=== PATIENT | female | born 2000 | race Two or more races ===

== ENCOUNTER 2018-09-01 20:55 | Emergency (ER) | payer MEDICAID ==
[~2018-09-01] VITALS: Ht 157.5 cm; Wt 45.4 kg
[2018-09-01] MEDS ORDERED: IBUPROFEN 600 MG TABLET PO ONE (22:30)
[2018-09-01] MEDS ORDERED: DEXAMETHASONE 4 MG TABLET PO ONE (22:30)
[2018-09-01] MEDS ORDERED: DEXAMETHASONE 1 MG TABLET ONE (22:37)
[2018-09-01] MEDS ORDERED: DEXAMETHASONE 4 MG TABLET ONE (22:37)
[2018-09-01] MEDS ORDERED: IBUPROFEN 600 MG TABLET ONE (22:37)
--- NOTE | 2018-09-01 23:00 | NUR ---
Patient discharged to home in stable conditon. Written and verbal after care instructions given. Patient verbalizes understanding of instructions. PATIENT LEFT WITH STABLE GAIT.
[2018-09-02 00:31] VITALS: BP 116/82
== END 2018-09-02 00:32 | disposition home or self-care (01) ==
LOC: ER 20:55
DX: J02.9 Acute pharyngitis, unspecified (principal)
CPT/HCPCS: 99283; J8540 ×2; A4663

== ENCOUNTER 2018-10-11 10:52 | Emergency (ER) | payer MEDICAID ==
[~2018-10-11] VITALS: Ht 157.5 cm; Wt 46.3 kg
--- NOTE | 2018-10-11 11:10 | NUR ---
DR JOHNSON AT BEDSIDE FOR EVAL.
--- NOTE | 2018-10-11 11:16 | NUR ---
Patient discharged to home in stable conditon. Written and verbal after care instructions given. Patient verbalizes understanding of instructions.pt walks in steady gait. pt able to swallow saliva.
== END 2018-10-11 11:18 | disposition home or self-care (01) ==
LOC: ER 10:52
DX: J02.0 Streptococcal pharyngitis (principal)
CPT/HCPCS: 36415; 86403; 87070; A4663

== ENCOUNTER 2018-11-01 20:49 | Emergency (ER) | payer MEDICAID ==
[~2018-11-01] VITALS: Ht 157.5 cm; Wt 45.4 kg
--- NOTE | 2018-11-01 22:51 | NUR ---
Pt ambulates to ER with mother with c/o sore throat radiating to left ear x 3 days, states coughing clear phlegm. Respirations even + unlabored. No acute distress noetd.
[2018-11-01 23:37] LABS: *MONOTEST NEGATIVE (NEGATIVE)
--- NOTE | 2018-11-02 00:04 | NUR ---
Patient discharged to home in stable conditon. Written and verbal after care instructions given. Patient verbalizes understanding of instructions.
[2018-11-02 00:07] VITALS: BP 122/86
== END 2018-11-02 00:10 | disposition home or self-care (01) ==
LOC: ER 20:49
DX: J02.9 Acute pharyngitis, unspecified (principal)
CPT/HCPCS: 36415; 86308; A4663

== ENCOUNTER 2022-12-03 18:31 | Emergency (ER) | payer BC, MEDICAID ==
[~2022-12-03] VITALS: Ht 157.5 cm; Wt 58.5 kg
--- NOTE | 2022-12-03 20:00 | NUR ---
Dr. Phillips in room examining patient.
[2022-12-03] MEDS ORDERED: HYDR473S13 PO (20:14)
[2022-12-03] MEDS ORDERED: OXYM15MI4 NS (20:14)
[2022-12-03] MEDS ORDERED: PSEU-182 PO (20:14)
[2022-12-03] MEDS ORDERED: FLUT16SP16 BNOSTRILS (20:14)
--- NOTE | 2022-12-03 20:24 | NUR ---
Patient discharged to home in stable condition. Written and verbal after care instructions given. Patient verbalizes understanding of instructions. Stressed follow up or return to ER for worsening s/s. Patient walked out with steady gait.
[2022-12-03 20:25] VITALS: BP 118/72
== END 2022-12-03 20:28 | disposition home or self-care (01) ==
LOC: ER 18:34
DX: J40 Bronchitis, not specified as acute or chronic (principal); Z79.899 Other long term (current) drug therapy
CPT/HCPCS: A4663

== ENCOUNTER 2024-08-23 15:59 | Emergency (ER) | payer BC ==
[~2024-08-23] VITALS: Ht 157.5 cm; Wt 56.7 kg
[~2024-08-23 15:59] MED LIST: FLUT16SP16 BNOSTRILS; HYDR473S13 PO; OXYM15MI4 NS; PSEU-182 PO
[2024-08-23 16:41] LABS: BASOPHILS % (AUTO) 0.5 % (0.0-2.0); HEMATOCRIT 41.3 % (31.2-41.9); HEMOGLOBIN 14.1 g/dL (10.9-14.3); LYMPHOCYTES # (AUTO) 0.9 K/uL (0.8-4.8); LYMPHOCYTES % (AUTO) 30.5 % (20.5-51.5); MEAN CORPUSCULAR HEMOGLOBIN 29.9 uug (24.7-32.8); MEAN CORPUSCULAR HGB CONC 34 g/dL (32.3-35.6); MEAN CORPUSCULAR VOLUME 87.6 fL (75.5-95.3); MONOCYTES # (AUTO) 0.6 K/uL (0.1-1.30); MONOCYTES % (AUTO) 19.7 % (0.0-11.0); NEUTROPHILS # (AUTO) 1.4 K/uL (1.8-8.9); NEUTROPHILS % (AUTO) 49.3 % (38.5-71.5); PLATELET COUNT (AUTO) 214 K/uL (179-408); RED BLOOD CELL COUNT(AUTO) 4.71 MIL/uL (3.63-4.92); RED CELL DISTRIBUTION WIDTH 13.1 % (12.3-17.7); WHITE BLOOD COUNT (AUTO) 2.9 K/uL (3.8-11.8)
[2024-08-23 16:46] LABS: LYMPHOCYTES % (MANUAL) 32 % (20-40); NEUTROPHILS % (MANUAL) 50 % (42-75)
[2024-08-23 16:47] LABS: BASOPHILS % (MANUAL) 0 % (0-2)
[2024-08-23 16:48] LABS: EOSINOPHILS % (MANUAL) 4 % (0-8); MONOCYTES % (MANUAL) 14 % (2-10)
[2024-08-23] MEDS ORDERED: IBUPROFEN 400 MG TABLET ONE (16:55)
[2024-08-23] MEDS: IBUPROFEN 400 MG TABLET PO ONE (16:59)
[2024-08-23 17:14] LABS: CALCIUM 8.7 mg/dL (8.5-10.1); POTASSIUM 3.2 mmol/L (3.5-5.1)
[2024-08-23 17:19] LABS: ALBUMIN 3.2 g/dL (3.4-5.0); BILIRUBIN,DIRECT 0.1 mg/dL (0.0-0.2); BILIRUBIN,TOTAL 0.3 mg/dL (0.2-1.0); TOTAL PROTEIN, SERUM 6.9 g/dL (6.4-8.2)
[2024-08-23 17:55] VITALS: BP 127/85; O2SAT 99
== END 2024-08-23 17:56 | disposition home or self-care (01) ==
LOC: ER 15:59
DX: R51.9 Headache, unspecified (principal); Z88.7 Allergy status to serum and vaccine; R94.31 Abnormal electrocardiogram [ECG] [EKG]
CPT/HCPCS: 36415; 70030-TC; 83690; 85025; A4606; A4663